=== PATIENT | male | born 1995 | race Caucasian/White ===

== ENCOUNTER 2024-07-15 11:46 | Emergency (ER) | payer OTHER ==
[2024-07-15] MEDS: Ketorolac 60 MG/2 ML SDV IM ONE (13:30)
[2024-07-15] MEDS: Orphenadrine 60 MG/2 ML Inj IM ONE (13:31)
== END 2024-07-15 14:31 | disposition home or self-care (01) ==
LOC: MW.ED 11:46
DX: S39.012A Strain of muscle, fascia and tendon of lower back, initial encounter (principal); S16.1XXA Strain of muscle, fascia and tendon at neck level, initial encounter; S60.012A Contusion of left thumb without damage to nail, initial encounter; S60.222A Contusion of left hand, initial encounter; S40.012A Contusion of left shoulder, initial encounter; Z88.8 Allergy status to other drugs, medicaments and biological substances; Z79.899 Other long term (current) drug therapy; V89.2XXA Person injured in unspecified motor-vehicle accident, traffic, initial encounter
CPT/HCPCS: 72040; 72070; 72100; 73030; 73130; 96372; 99284; J1885; J2360; 99282